=== PATIENT | male | born 1960 | race Hispanic/Latino ===

== ENCOUNTER 2020-10-17 06:10 | Day surgery (SDC) | payer OTHER ==
[2020-10-11 10:40] LABS: Hematocrit 46.7 % (35.5-45.6); Mean Corpuscular HGB Conc 34 % (32-34); Mean Corpuscular Volume 94 fl (84-94); Platelet Count 208 K/mm3 (140-440); Red Blood Count 4.98 M/mm3 (3.65-5.03); Red Cell Distribution Width 12.9 % (13.2-15.2)
[2020-10-11 10:57] LABS: Alanine Aminotransferase 69 units/L (7-56); Albumin 4.5 g/dL (3.9-5); BUN/Creatinine Ratio 11; Blood Urea Nitrogen 10 mg/dL (9-20); Calcium 7.9 mg/dL (8.4-10.2); Hemolysis Index 7
[~2020-10-17 06:10] MED LIST: LACTATED RINGERS 1,000 ML IV SCH; MIDAZOLAM 2 MG/2 ML INJ IV NR
--- NOTE | 2020-10-17 07:06 | Anesthesia Consultation ---
Anesthesia Consult and Med Hx Date of service: 10/17/20 - Airway Anesthetic Teeth Evaluation: Good ROM Head & Neck: Adequate Mental/Hyoid Distance: Adequate Mallampati Class: Class II Intubation Access Assessment: Good - Pulmonary Exam CTA: Yes - Cardiac Exam Cardiac Exam: RRR - Pre-Operative Health Status ASA Pre-Surgery Classification: ASA2 Proposed Anesthetic Plan: General - Pulmonary Hx Smoking: No Hx Sleep Apnea: No (RAYNE PRE SCREEN HIGH RISK) - Cardiovascular System Hx Hypertension: Yes - Central Nervous System Hx Psychiatric Problems: No - Endocrine Hx Non-Insulin Dependent Diabetes: Yes - Hematic Hx Anemia: No - Other Systems Hx Alcohol Use: No Hx Substance Use: No Hx Cancer: Yes
--- NOTE | 2020-10-17 07:07 | Anesthesia Day of Surgery ---
Anesthesia Day of Surgery - Day of Surgery Patient Examined: Yes Patient H&P Reviewed: Yes Patient is NPO: Yes
[2020-10-17] MEDS ORDERED: SODIUM CHLORIDE 0.9% 1000 ML 1,000 ML ONE (07:18)
[2020-10-17] MEDS ORDERED: LIDOCAINE MPF (2%) 20 MG/1 ML VIAL 5 ML ONE (07:22)
[2020-10-17] MEDS ORDERED: HYDROcodone/ACETAMINOPHEN 5-325 MG TAB PO PRN (07:23)
[2020-10-17] MEDS ORDERED: fentaNYL 100 MCG/2 ML INJ IV PRN (07:23)
[2020-10-17] MEDS ORDERED: ONDANSETRON 4 MG/2 ML INJ IV PRN (07:23)
[2020-10-17] MEDS ORDERED: propofoL 200 MG/20 ML VIAL IV ONE (07:28)
[2020-10-17] MEDS ORDERED: fentaNYL 100 MCG/2 ML INJ ONE (07:28)
[2020-10-17] MEDS ORDERED: ceFAZolin/Water 2 GM/20 ML 2 GM/20 ML SYRINGE IV ONE (07:54)
--- NOTE | 2020-10-17 07:54 | Post Operative Note ---
Date of procedure: 10/17/20 Pre-op diagnosis: cap Post-op diagnosis: same Procedure: cysto cryoablation prostate Anesthesia: GETA Estimated blood loss: minimal Pathology: none Condition: stable Disposition: PACU
--- NOTE | 2020-10-17 07:55 | Discharge Summary ---
Short Stay Discharge Plan Activity: other (no straining ) Weight Bearing Status: Full Weight Bearing Diet: low fat, low cholesterol, low salt Special Instructions: other (home with tellez ) Durable Medical Equipment Needed Upon Discharge: other ([facility] care ) Follow up with: ARNALDO SALAS MD [Primary Care Provider] - 7 Days LYLA CASTRO MD [Staff Physician] - 7 Days
[2020-10-17] MEDS ORDERED: ceFAZolin/STERILE WATER 2 GM/20 ML SYRINGE IV NR (08:00)
[2020-10-17] MEDS ORDERED: GLYCOPYRROLATE 0.4 MG/2 ML INJ ONE (09:54)
[2020-10-17] MEDS ORDERED: ONDANSETRON 4 MG/2 ML INJ ONE (09:54)
[2020-10-17] MEDS ORDERED: LACTATED RINGERS 1,000 ML ONE (10:00)
--- NOTE | 2020-10-17 11:44 | Post Anesthesia Evaluation ---
- Post Anesthesia Evaluation Patient Participated: Yes Airway Patent: Yes Stable Respiratory Function: Yes Nausea/Vomiting: No Temp > 96.8F: Yes Pain Manageable: Yes Adequeate Hydration: Yes Anesthesia Complications: No
[2020-10-17 12:14] VITALS: BP 132/74
--- NOTE | 2020-10-17 15:12 | Operative Report ---
DATE OF SURGERY: 10/17/2020 INDICATIONS: The patient is a 60-year-old gentleman with prostate cancer, previous history of colon cancer and pelvic radiation, scar tissue, was not a candidate for radical surgery or radiation. He now presents for cryoablation of the prostate. All risks and implications of this were discussed. He was on some hormones to start with ____ scheduled. DESCRIPTION OF PROCEDURE: The patient was brought to the OR and placed on operating table. Following induction of anesthesia, placed in lithotomy position, prepped and draped in usual sterile fashion. Prostate gland was visualized and measured approximately 30 grams. He had high-grade disease on the right. The gland actually looks much smaller than 30. At this point, visualization with ultrasound was good. A Koehler catheter was easily placed and the scrotum was retracted superiorly. [place] were placed 1 and 2 after we measured the gland, then developed the template. Then, we placed ____ deviated little to the right because of a very prominent rectourethralis muscle. The temperature probe was placed as well. At this point, the probes 5 and 6 were placed and we saw that we had amazing coverage on the left side, we did not need a probe there, but we did place an extra probe on the side with the cancer probe #3. The patient tolerated the procedure well. There were no complications. We went back and forth to the different images and placed him up to the base and had excellent coverage. At this point, the catheter was removed. A stiff wire was placed through the flexible cystoscope, the warmer which was checked was working fine was placed. He did have some atypia on the left side, but his cancer was on the right side. Once the warmer was then placed, then we checked all the probes. The first freeze was carried out was about 8 minutes total. We started from 1 and 2 and then went from 5 and 6 and then to 3 because 3 was more medially. We had excellent ____ and excellent symmetry. We were able to freeze the midline tissue as well. ____ was carried out. A second symmetrical freeze was gradually started from the top down. We had excellent ____ once again. ____ was carried out until we ran out of the gas and then we allowed the flow to carry out just spontaneously and then removed the warmer and placed a 20-[place] catheter. The patient tolerated the procedure well, no significant complication, brought to recovery in stable condition. TID: [id number] RECEIPT: [id number] ZENIA/RAFAELA/TAVIA
== END 2020-10-17 11:50 | disposition home or self-care (01) ==
LOC: OR 06:10
PROVIDERS: ATTEND Urology
DX: C61 Malignant neoplasm of prostate (principal); Z20.822 Contact with and (suspected) exposure to COVID-19; G62.9 Polyneuropathy, unspecified; E78.00 Pure hypercholesterolemia, unspecified; I10 Essential (primary) hypertension; Z85.038 Personal history of other malignant neoplasm of large intestine; E11.9 Type 2 diabetes mellitus without complications; Z79.899 Other long term (current) drug therapy; Z88.2 Allergy status to sulfonamides; Z98.890 Other specified postprocedural states
CPT/HCPCS: 36415; 55873; 80053; 82962; 85027; C2618; J0690; J2250; J2405; J2704; J3010; J7030; J7120; U0003